=== PATIENT | male | born 1975 | race Caucasian/White ===

== ENCOUNTER 2018-06-23 12:45 | Emergency (ER) | payer OTHER ==
[~2018-06-23] VITALS: Ht 180.3 cm; Wt 74.8 kg
[2018-06-23 13:46] LABS: Basophils # (auto) 0.1 uL; Eosinophils # (auto) 0.1 uL; Eosinophils % (auto) 1.2 % (0.0-7.0); Hematocrit 52.9 % (41.0-53.0); Hemoglobin 17.6 g/dL (13.5-17.5); Lymphocytes # (auto) 2.8 uL; Lymphocytes % (auto) 24.3 % (10.0-50.0); Mean Corpuscular Hemoglobin 30.3 pg (28.0-32.0); Mean Corpuscular Hgb Conc. 33.2 g/dL (32.0-36.0); Mean Corpuscular Volume 91.3 fL (80.0-100.0); Monocytes # (auto) 0.6 uL; Monocytes % (auto) 5.4 % (0.0-12.0); Neutrophils # (auto) 7.7 uL; Neutrophils % (auto) 68.1 % (37.0-80.0); Nucleated Red Blood Cells % 0.1 %; Platelet Count (auto) 306 10^3/uL (140-450); Red Blood Cells 5.79 10^6/uL (4.5-5.90); Red Cell Distribution Width 14.6 % (11.8-14.3); White Blood Cell 11.3 10^3/uL (4.4-10.8)
[2018-06-23 14:05] LABS: INR 0.97 (0.9-1.15); Partial Thromboplastin Time 28.7 sec (23.78-33.04); Prothrombin Time 10.4 sec (9.27-12.13)
[2018-06-23 14:17] LABS: Potassium 4.1 mmol/L (3.5-5.1)
[2018-06-23 14:19] VITALS: BP 130/82
[2018-06-23 14:24] LABS: Albumin 4.3 g/dL (3.4-5.0); BUN/Creatinine Ratio 14.1; Bilirubin, Total 0.4 mg/dL (0.2-1.0); Calcium 9.1 mg/dL (8.5-10.1); Total Protein 8.1 g/dL (6.4-8.2)
== END 2018-06-23 14:36 | disposition home or self-care (01) ==
LOC: ER 12:50
DX: R79.1 Abnormal coagulation profile (principal); F17.210 Nicotine dependence, cigarettes, uncomplicated
CPT/HCPCS: 36415; 80053; 85025; 85610; 85730

== ENCOUNTER 2018-09-17 19:03 | Emergency (ER) | payer OTHER ==
[~2018-09-17] VITALS: Ht 175.3 cm; Wt 54.4 kg
[2018-09-17 20:24] VITALS: BP 107/80
== END 2018-09-17 21:01 | disposition home or self-care (01) ==
LOC: ER 19:03
DX: T83.028A Displacement of other urinary catheter, initial encounter (principal); F17.210 Nicotine dependence, cigarettes, uncomplicated

== ENCOUNTER 2018-09-19 22:12 | Emergency (ER) | payer OTHER ==
[~2018-09-19] VITALS: Ht 175.3 cm; Wt 56.7 kg
[2018-09-19 23:54] LABS: Urine Bacteria MANY /hpf (None Seen); Urine Blood 2+ /uL (Negative); Urine Hyaline Cast MOD /lpf (0 - 2); Urine Mucus FEW (None Seen); Urine WBC 2426 /hpf (0 - 3); Urine WBC Clumps PRESENT /hpf (None Seen)
[2018-09-20 05:12] VITALS: BP 123/78
== END 2018-09-20 05:14 | disposition home or self-care (01) ==
LOC: ER 22:12
DX: N39.0 Urinary tract infection, site not specified (principal); F17.210 Nicotine dependence, cigarettes, uncomplicated; Z46.6 Encounter for fitting and adjustment of urinary device; Z98.890 Other specified postprocedural states
CPT/HCPCS: 81001

== ENCOUNTER 2018-09-20 08:18 | Emergency (ER) | payer OTHER ==
[~2018-09-20] VITALS: Ht 175.3 cm; Wt 54.4 kg
[2018-09-20 09:41] VITALS: BP 113/48
[2018-09-20] MEDS ORDERED: SODIUM CHLORIDE 0.9% 1,000 ML IV ONE (10:31)
[2018-09-20 11:30] LABS: Basophils # (auto) 0.1 uL; Basophils % (auto) 0.8 % (0.0-2.0); Eosinophils # (auto) 0.2 uL; Eosinophils % (auto) 1.5 % (0.0-7.0); Hematocrit 43.4 % (41.0-53.0); Hemoglobin 14.5 g/dL (13.5-17.5); Lymphocytes # (auto) 2.8 uL; Lymphocytes % (auto) 24.8 % (10.0-50.0); Mean Corpuscular Hemoglobin 29.7 pg (28.0-32.0); Mean Corpuscular Hgb Conc. 33.3 g/dL (32.0-36.0); Mean Corpuscular Volume 89.2 fL (80.0-100.0); Monocytes # (auto) 0.9 uL; Neutrophils # (auto) 7.4 uL; Neutrophils % (auto) 64.9 % (37.0-80.0); Nucleated Red Blood Cells % 0.2 %; Platelet Count (auto) 283 10^3/uL (140-450); Red Blood Cells 4.87 10^6/uL (4.5-5.90); Red Cell Distribution Width 13.9 % (11.8-14.3); White Blood Cell 11.3 10^3/uL (4.4-10.8)
[2018-09-20 11:49] LABS: Albumin 3.6 g/dL (3.4-5.0); Calcium 8.4 mg/dL (8.5-10.1); Magnesium 2.4 mg/dL (1.6-2.6); Potassium 3.7 mmol/L (3.5-5.1)
[2018-09-20 11:51] LABS: Bilirubin, Total 0.8 mg/dL (0.2-1.0)
[2018-09-20] MEDS ORDERED: LIDOCAINE 2% (LOCAL ANESTH.) PF 5ml SDV ONE (11:58)
[2018-09-20] MEDS ORDERED: cefTRIAXone SOD 1,000 MG VL ONE (11:58)
[2018-09-20] MEDS ORDERED: cefTRIAXone W LIDOCAINE 1 GM IM IM ONE (12:00)
== END 2018-09-20 12:17 | disposition home or self-care (01) ==
LOC: ER 08:21
DX: J90 Pleural effusion, not elsewhere classified (principal); R09.89 Other specified symptoms and signs involving the circulatory and respiratory systems
CPT/HCPCS: 36415; 51702; 71046; 80053; 83735; 84443; 85025; 93005; 96372; 99284; J0696; J2001

== ENCOUNTER 2018-09-22 19:24 | Inpatient (IN) | payer OTHER ==
[~2018-09-22] VITALS: Ht 165.1 cm; Wt 49.0 kg
[2018-09-22] MEDS ORDERED: SODIUM CHLORIDE 0.9% 2,000 ML IV ONE (20:15)
[2018-09-22] MEDS ORDERED: SODIUM CHLORIDE 0.9% 1,800 ML IV ONE (20:15)
[2018-09-22] MEDS ORDERED: SODIUM BICARBONATE 8.4 % INJ 50ML VIAL IV ONE ×2 (21:00→22:16)
[2018-09-22] MEDS ORDERED: SODIUM BICARBONATE 50ML VIAL 50 ML in D5W 5% 1,000 ML IV ONE (21:00)
[2018-09-22 21:38] LABS: Basophils # (auto) 0.1 uL; Basophils % (auto) 0.4 % (0.0-2.0); Eosinophils # (auto) 0 uL; Hematocrit 44.8 % (41.0-53.0); Hemoglobin 14.5 g/dL (13.5-17.5); Lymphocytes % (auto) 4.1 % (10.0-50.0); Mean Corpuscular Hemoglobin 29.9 pg (28.0-32.0); Mean Corpuscular Hgb Conc. 32.3 g/dL (32.0-36.0); Mean Corpuscular Volume 92.7 fL (80.0-100.0); Monocytes # (auto) 1.6 uL; Monocytes % (auto) 6.7 % (0.0-12.0); Neutrophils # (auto) 21.9 uL; Neutrophils % (auto) 88.8 % (37.0-80.0); Nucleated Red Blood Cells % 0.1 %; Platelet Count (auto) 293 10^3/uL (140-450); Red Blood Cells 4.84 10^6/uL (4.5-5.90); Red Cell Distribution Width 14.3 % (11.8-14.3); White Blood Cell 24.7 10^3/uL (4.4-10.8)
[2018-09-22] MEDS ORDERED: NOREPINEPHRINE 8 MG/250ML KIT 250 ML IV STA (21:40)
[2018-09-22 21:50] LABS: Chloride 114 mmol/L (98-107); Potassium 4.1 mmol/L (3.5-5.1); Sodium 151 mmol/L (136-145)
[2018-09-22 21:54] LABS: Alanine Aminotransferase 99 U/L (16-61); Albumin 2.9 g/dL (3.4-5.0); Anion Gap 28 (5-15); Aspartate Aminotransferase 229 U/L (15-37); BUN/Creatinine Ratio 34.1; Blood Alcohol < 3.0 mg/dL (0-5); Blood Urea Nitrogen 62 mg/dL (7-18); Calcium 7.1 mg/dL (8.5-10.1); GFR African American 52 mL/min; GFR Non-African American 43 mL/min; Glucose 68 mg/dL (74-106); Magnesium 3.3 mg/dL (1.6-2.6)
[2018-09-22 21:56] LABS: Acetaminophen 3.5 ug/mL (10-30); Alkaline Phosphatase 69 U/L (45-117); Bilirubin, Total 0.4 mg/dL (0.2-1.0); Salicylate 7.4 mg/dL (2.8-20.0); Total Protein 6.2 g/dL (6.4-8.2)
[2018-09-22] MEDS ORDERED: DEXTROSE 50% SYRINGE 50 ML IV ONE (21:56)
[2018-09-22] MEDS ORDERED: DEXTROSE (50%) 50ML SYRG IV ONE (22:00)
[2018-09-22] MEDS ORDERED: PIPERACILLIN-TAZO 4.5GM 100 ML IV SCH (22:00)
[2018-09-22 22:09] LABS: Partial Thromboplastin Time 30.2 sec (23.78-33.04); Prothrombin Time 10.7 sec (9.27-12.13)
[2018-09-22 22:28] LABS: Alcohol, Urine < 3.0 mg/dL (0-5); Amphetamine Screen, Urine NEGATIVE (NEGATIVE); Barbiturate Scree,Urine NEGATIVE (NEGATIVE); Benzodiazephine Screen, Urine NEGATIVE (NEGATIVE); Cannabinoid Screen, Urine NEGATIVE (NEGATIVE); Cocaine Screen, Urine NEGATIVE (NEGATIVE); Opiate Scree,Urine NEGATIVE (NEGATIVE); Phencyclidine Screen, Urine NEGATIVE (NEGATIVE)
[2018-09-22 22:38] LABS: Urine Bacteria FEW /hpf (None Seen); Urine Blood 3+ /uL (Negative); Urine Mucus FEW (None Seen); Urine Specific Gravity 1.018 (1.001-1.035); Urine WBC 468 /hpf (0 - 3); Urine WBC Clumps PRESENT /hpf (None Seen)
[2018-09-22 22:44] LABS: Carbon Dioxide 9 mmol/L (21-32)
[2018-09-22] MEDS: VANCOMYCIN 1GM/250ML 250 ML IV SCH (22:52)
[2018-09-23] MEDS: PIPERACILLIN-TAZO 4.5GM 100 ML IV SCH ×3 (00:26→15:30)
[2018-09-23 00:43] LABS: Fibrinogen 329.7 mg/dL (177-375)
[2018-09-23] MEDS ORDERED: VANCOMYCIN PER PHARMACY 0 MG IV SCH (01:00)
[2018-09-23] MEDS ORDERED: ONDANSETRON HCL 4 MG/2 ML VIAL IV PRN (01:00)
[2018-09-23] MEDS ORDERED: ACETAMINOPHEN 325 MG TAB PO PRN (01:00)
[2018-09-23] MEDS ORDERED: NITROGLYCERIN 0.4 MG SL TAB SL PRN (01:00)
[2018-09-23] MEDS ORDERED: MORPHINE SULFATE 4 MG/ML SYR/VIAL IV PRN (01:00)
[2018-09-23] MEDS ORDERED: SODIUM BICARBONATE 8.4 % INJ 50ML VIAL IV ONE (01:21)
[2018-09-23] MEDS: SODIUM BICARBONATE 50ML VIAL 50 ML in D5W/SOD CHL 0.45% 1,000 ML IV SCH ×3 (01:27→22:57)
[2018-09-23 05:41] LABS: Basophils # (auto) 0 uL; Basophils % (auto) 0.1 % (0.0-2.0); Eosinophils # (auto) 0 uL; Hematocrit 43.5 % (41.0-53.0); Hemoglobin 14.7 g/dL (13.5-17.5); Lymphocytes # (auto) 1.1 uL; Lymphocytes % (auto) 5.6 % (10.0-50.0); Mean Corpuscular Hgb Conc. 33.8 g/dL (32.0-36.0); Mean Corpuscular Volume 88.9 fL (80.0-100.0); Monocytes # (auto) 1.6 uL; Monocytes % (auto) 8.1 % (0.0-12.0); Neutrophils # (auto) 16.9 uL; Neutrophils % (auto) 86.2 % (37.0-80.0); Platelet Count (auto) 301 10^3/uL (140-450); Red Blood Cells 4.89 10^6/uL (4.5-5.90); Red Cell Distribution Width 13.9 % (11.8-14.3); White Blood Cell 19.6 10^3/uL (4.4-10.8)
[2018-09-23] MEDS ORDERED: PIPERACILLIN-TAZOB 3.375GM 100 ML IV SCH (06:00)
[2018-09-23 06:02] LABS: BUN/Creatinine Ratio 34.2; Calcium 7.2 mg/dL (8.5-10.1); Potassium 3.5 mmol/L (3.5-5.1)
[2018-09-23] MEDS ORDERED: NOREPINEPHRINE 8 MG/250ML KIT 250 ML IV ONE ×2 (09:45→22:16)
[2018-09-23] MEDS: PANTOPRAZOLE 40 MG/10 ML VIAL IV SCH (10:30)
[2018-09-23] MEDS: VANCOMYCIN 1GM/250ML 250 ML IV SCH ×2 (10:30→23:49)
[2018-09-23] MEDS ORDERED: DEXTROSE (50%) 50ML SYRG IV PRN (14:45)
[2018-09-23] MEDS: ACCU-CHEK COMFORT CURVE STRIP VI SCH ×2 (17:41→23:30)
[2018-09-23] MEDS: InsuLIN REG 1unit/0.01ml Soln (100units/ml) SC SCH ×2 (17:42→23:52)
[2018-09-23] MEDS: Glucerna Carbsteady SHAKE Vanilla 8oz PO SCH (18:46)
[2018-09-23 22:00] LABS: Calcium 7.2 mg/dL (8.5-10.1); Potassium 3.3 mmol/L (3.5-5.1)
[2018-09-23] MEDS ORDERED: ETOMIDATE (2MG/ML) 20ML VIAL IV ONE (22:37)
[2018-09-23] MEDS ORDERED: SUCCINYLCHOLINE CHLORIDE 20 MG/ML 10ML VIAL IV ONE (22:37)
[2018-09-24] MEDS: PIPERACILLIN-TAZO 4.5GM 100 ML IV SCH ×4 (04:05→23:12)
[2018-09-24 05:02] LABS: Basophils # (auto) 0.1 uL; Basophils % (auto) 1.2 % (0.0-2.0); Eosinophils # (auto) 0 uL; Eosinophils % (auto) 0.4 % (0.0-7.0); Hematocrit 38.1 % (41.0-53.0); Hemoglobin 13.1 g/dL (13.5-17.5); Lymphocytes # (auto) 2.9 uL; Mean Corpuscular Hemoglobin 30.5 pg (28.0-32.0); Mean Corpuscular Hgb Conc. 34.3 g/dL (32.0-36.0); Mean Corpuscular Volume 88.9 fL (80.0-100.0); Monocytes # (auto) 0.9 uL; Monocytes % (auto) 8.4 % (0.0-12.0); Neutrophils # (auto) 6.7 uL; Platelet Count (auto) 234 10^3/uL (140-450); Red Blood Cells 4.29 10^6/uL (4.5-5.90); White Blood Cell 10.7 10^3/uL (4.4-10.8)
[2018-09-24 05:36] LABS: Albumin 2.3 g/dL (3.4-5.0); BUN/Creatinine Ratio 20.5; Bilirubin, Total 0.5 mg/dL (0.2-1.0); Calcium 6.9 mg/dL (8.5-10.1)
[2018-09-24 05:56] LABS: Potassium 2.7 mmol/L (3.5-5.1)
[2018-09-24] MEDS: InsuLIN REG 1unit/0.01ml Soln (100units/ml) SC SCH ×4 (07:00→22:15)
[2018-09-24] MEDS: ACCU-CHEK COMFORT CURVE STRIP VI SCH ×4 (07:24→22:15)
[2018-09-24] MEDS: NOREPINEPHRINE 8 MG/250ML KIT 250 ML IV SCH ×2 (08:00→20:11)
[2018-09-24] MEDS: Glucerna Carbsteady SHAKE Vanilla 8oz PO SCH ×3 (08:00→18:10)
[2018-09-24] MEDS ORDERED: NOREPINEPHRINE 8 MG/250ML KIT 250 ML IV ONE (08:19)
[2018-09-24] MEDS: SODIUM BICARBONATE 50ML VIAL 50 ML in D5W/SOD CHL 0.45% 1,000 ML IV SCH ×3 (08:30→19:00)
[2018-09-24] MEDS: VANCOMYCIN 1GM/250ML 250 ML IV SCH ×2 (10:27→22:11)
[2018-09-24] MEDS: PANTOPRAZOLE 40 MG/10 ML VIAL IV SCH (10:27)
[2018-09-25] MEDS: PIPERACILLIN-TAZO 4.5GM 100 ML IV SCH (06:36)
[2018-09-25] MEDS: ACCU-CHEK COMFORT CURVE STRIP VI SCH ×4 (06:43→21:58)
[2018-09-25] MEDS: InsuLIN REG 1unit/0.01ml Soln (100units/ml) SC SCH ×4 (06:43→21:58)
[2018-09-25 07:39] LABS: Basophils # (auto) 0.1 uL; Basophils % (auto) 1.1 % (0.0-2.0); Eosinophils # (auto) 0.1 uL; Eosinophils % (auto) 1.3 % (0.0-7.0); Hematocrit 37.2 % (41.0-53.0); Hemoglobin 12.4 g/dL (13.5-17.5); Lymphocytes # (auto) 2.2 uL; Lymphocytes % (auto) 33.1 % (10.0-50.0); Mean Corpuscular Hemoglobin 29.9 pg (28.0-32.0); Mean Corpuscular Hgb Conc. 33.3 g/dL (32.0-36.0); Monocytes # (auto) 0.5 uL; Monocytes % (auto) 6.9 % (0.0-12.0); Neutrophils # (auto) 3.7 uL; Neutrophils % (auto) 57.6 % (37.0-80.0); Platelet Count (auto) 164 10^3/uL (140-450); Red Blood Cells 4.13 10^6/uL (4.5-5.90); White Blood Cell 6.5 10^3/uL (4.4-10.8)
[2018-09-25 07:49] LABS: Albumin 2.3 g/dL (3.4-5.0); Calcium 7.2 mg/dL (8.5-10.1); Magnesium 2.3 mg/dL (1.6-2.6)
[2018-09-25 07:54] LABS: BUN/Creatinine Ratio 23.2; Bilirubin, Total 0.3 mg/dL (0.2-1.0); Total Protein 4.9 g/dL (6.4-8.2)
[2018-09-25 08:02] LABS: Potassium 2.8 mmol/L (3.5-5.1)
[2018-09-25] MEDS: SODIUM BICARBONATE 50ML VIAL 50 ML in D5W/SOD CHL 0.45% 1,000 ML IV SCH ×2 (08:06→08:27)
[2018-09-25] MEDS: Glucerna Carbsteady SHAKE Vanilla 8oz PO SCH ×3 (08:26→18:18)
[2018-09-25] MEDS: VANCOMYCIN 1GM/250ML 250 ML IV SCH (08:26)
[2018-09-25] MEDS ORDERED: POTASSIUM CHLORIDE 40 MEQ, LIDOCAINE 1% (LOCAL ANESTH.) 4 ML in SODIUM CHL 0.9% 100 ML IV ONE (10:15)
[2018-09-25] MEDS: PANTOPRAZOLE 40 MG/10 ML VIAL IV SCH (10:27)
[2018-09-25] MEDS: D5W/SOD CHL 0.45%/KCL 20MEQ 1,000 ML IV SCH ×2 (10:27→21:02)
[2018-09-25] MEDS ORDERED: cefTRIAXone 1GM/50ML D5W 50 ML IV ONE (11:30)
--- NOTE | 2018-09-25 13:53 | NUR ---
MS admit from ER JOVITA NEVILLE admitted to tele/MS after SBAR received. Patient oriented to LEANNA TOWNSEND, primary RN, unit, room, bed, and unit policies regarding patient care and visiting hours. Patient weighed by bedscale and encouraged to call if they need something. All questions and concerns addressed, patient verbalized understanding. Note: Patient refused to answer admission questions this time. Patient states "I want to sleep."
[2018-09-25] MEDS: VANCOMYCIN HCL 125MG/5ML ORAL SOL PO SCH ×5 (13:57→22:00)
--- NOTE | 2018-09-25 15:30 | NUR ---
Report Report received from Rito. Patient transferred from the same floor. Bed in low pos., locked, rails up x2, call light in reach. Sitter in the room. Denies any pain. Removed of of the IV SL from left arm.
--- NOTE | 2018-09-25 15:34 | NUR ---
Patient will be transferred to room 221B. Report given to NEFTALI Crawford.
--- NOTE | 2018-09-25 15:36 | NUR ---
Patient moved to 221B
--- NOTE | 2018-09-25 16:00 | NUR ---
Assessment Pt alert x 4. On room air, no brathing difficulty. Has Felix cath draining clear yellow, with strong smell. On tele 11 running in 80's. Skin very very dry and it has been that way most of his life according to pt. Two LFA IV's and one removed because it was clotted. Right forearm SL flushed well. IV infusing to LFA with D5W & 20 K @ 75ML/HR. Denies any pain. Pt is a poor historian with regard to medical history.
[2018-09-25 16:34] VITALS: BP 118/54
--- NOTE | 2018-09-25 19:16 | NUR ---
Shift Report Shift report given to NEFTALI Diana. Pt resting in bed, bed in low pos., locked, rails up x2, call light in reach. Sitter at bedside. Denies any pain.
[2018-09-25 20:00] VITALS: BP 90/55
[2018-09-25 21:38] VITALS: BP 90/55
--- NOTE | 2018-09-26 01:40 | NUR ---
PATIENT REQUESTING TO BE OFF FROM FLUID AT THIS TIME. HEP-LOCKED, WILL RESUME FLUID LATER.
[2018-09-26] MEDS: VANCOMYCIN HCL 125MG/5ML ORAL SOL PO SCH ×5 (03:17→21:26)
[2018-09-26] MEDS: InsuLIN REG 1unit/0.01ml Soln (100units/ml) SC SCH ×3 (05:22→17:00)
[2018-09-26] MEDS: ACCU-CHEK COMFORT CURVE STRIP VI SCH ×3 (05:23→17:00)
--- NOTE | 2018-09-26 05:26 | NUR ---
Pt still refusing iv fluid at this time, educated re: importance of the fluid, still refusing and requesting to put it back in an hour. Will attempt later.
[2018-09-26 05:36] VITALS: BP 113/79
--- NOTE | 2018-09-26 07:30 | NUR ---
Opening Shift Note Assumed care of patient, awake and alert x2 -3. No S/S of distress/SOB or pain. Instructed on POC and to call for assistance PRN, will continue to monitor for changes Q1hr and PRN. Bed in low pos., locked, rails up x 4, Call light within reach. All accuchecks are within normal readings since arrival to the room yesterday. Sitter in the room.
[2018-09-26] MEDS: Glucerna Carbsteady SHAKE Vanilla 8oz PO SCH ×3 (08:00→18:46)
[2018-09-26 08:44] VITALS: BP 93/57
[2018-09-26] MEDS: cefTRIAXone 1GM/50ML D5W 50 ML IV SCH (08:47)
[2018-09-26 10:17] LABS: Basophils # (auto) 0 uL; Basophils % (auto) 0.9 % (0.0-2.0); Eosinophils # (auto) 0.3 uL; Hematocrit 37.3 % (41.0-53.0); Hemoglobin 12.3 g/dL (13.5-17.5); Lymphocytes # (auto) 1.7 uL; Lymphocytes % (auto) 33.2 % (10.0-50.0); Mean Corpuscular Hemoglobin 29.8 pg (28.0-32.0); Mean Corpuscular Volume 90.5 fL (80.0-100.0); Monocytes # (auto) 0.4 uL; Monocytes % (auto) 6.8 % (0.0-12.0); Neutrophils # (auto) 2.8 uL; Neutrophils % (auto) 53.1 % (37.0-80.0); Nucleated Red Blood Cells % 0.2 %; Platelet Count (auto) 173 10^3/uL (140-450); Red Blood Cells 4.12 10^6/uL (4.5-5.90); White Blood Cell 5.2 10^3/uL (4.4-10.8)
[2018-09-26 10:24] LABS: Albumin 2.3 g/dL (3.4-5.0); BUN/Creatinine Ratio 23.5; Calcium 7.5 mg/dL (8.5-10.1); Potassium 3.6 mmol/L (3.5-5.1)
[2018-09-26] MEDS: PANTOPRAZOLE 40 MG/10 ML VIAL IV SCH (10:28)
[2018-09-26 10:39] LABS: Bilirubin, Total 0.5 mg/dL (0.2-1.0)
--- NOTE | 2018-09-26 10:54 | NUR ---
IV STATUS IV TO RIGHT FOREARM LOOSE AND LEAKING. REMOVED IT JUST NOW.
--- NOTE | 2018-09-26 12:12 | NUR ---
NUTRITION ASSESSMENT NOTES Please refer to link notes of nutrition screen form filed under the intervention section of the plan of care for further details. Est. Needs: 1700 kcal to 1950 kcal (25-30 kcal/kgBW), 56 gms to 78 gms pro (1.0-1.4 gms/kgBW d/t severe hypoalbuminemia). Will continue to monitor pertinent labs and reassess nutrient needs prn Thank you. Addendum: 09/26/18 at [address] Amended: Links added.
[2018-09-26 13:11] VITALS: BP 103/72
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
[2018-09-26 17:14] VITALS: BP 107/78
[2018-09-26] MEDS: D5W/SOD CHL 0.45%/KCL 20MEQ 1,000 ML IV SCH (18:44)
--- NOTE | 2018-09-26 19:45 | NUR ---
Opening Shift Note Assumed care of patient, awake and alert to self. Sitter is at the bedside for safety precautions. No S/S of distress/SOB or pain noted. Instructed on plan of care and to call for assistance as needed, reinforcement needed. Bed is locked in lowest position, side rails x 2 are up, and call light is within reach.
--- NOTE | 2018-09-26 20:00 | NUR ---
REFUSING IV FLUIDS Patient is refusing IV fluids at this time. Educated patient on the why he is on IV fluids, patient still continues to refuse IV fluids at this time. Will attempt to resume IV fluids at a later time.
[2018-09-26 22:08] VITALS: BP 105/60
--- NOTE | 2018-09-26 23:00 | NUR ---
CONTINUES TO REFUSE IV FLUIDS Patient continues to refuse IV fluids at this time. Patient educated on the need for IV fluids.
--- NOTE | 2018-09-27 00:13 | NUR ---
HOSPITALIST PAGED Hospitalist paged regarding sleeping medication. Awaiting call back.
--- NOTE | 2018-09-27 02:02 | NUR ---
REFUSING IV FLUIDS Patient continues to refuse IV fluids at this time. Educated patient on the need for IV fluids, patient states he is refusing IV fluids because they "make him sick."
--- NOTE | 2018-09-27 02:05 | NUR ---
HOSPITALIST PAGED 2ND SECOND TIME Hospitalist paged called regarding sleeping medication. Awaiting call back.
[2018-09-27] MEDS: D5W/SOD CHL 0.45%/KCL 20MEQ 1,000 ML IV SCH ×2 (02:15→15:35)
[2018-09-27 05:00] VITALS: BP 120/76
[2018-09-27] MEDS: VANCOMYCIN HCL 125MG/5ML ORAL SOL PO SCH ×4 (06:31→21:30)
--- NOTE | 2018-09-27 07:20 | NUR ---
Opening shift note Assumed care of patient. Pt resting in bed sleeping., bed in low pos., locked, rails up x2, call light in reach. Denies any pain. Eflix cath draining well, clear yellow urine. No distress noted.
[2018-09-27 07:26] LABS: Basophils # (auto) 0 uL; Basophils % (auto) 0.6 % (0.0-2.0); Eosinophils # (auto) 0.4 uL; Eosinophils % (auto) 6.7 % (0.0-7.0); Hematocrit 41.6 % (41.0-53.0); Hemoglobin 13.8 g/dL (13.5-17.5); Lymphocytes # (auto) 2.1 uL; Mean Corpuscular Hemoglobin 30.1 pg (28.0-32.0); Mean Corpuscular Hgb Conc. 33.2 g/dL (32.0-36.0); Mean Corpuscular Volume 90.7 fL (80.0-100.0); Monocytes # (auto) 0.5 uL; Monocytes % (auto) 8.7 % (0.0-12.0); Neutrophils # (auto) 3.1 uL; Nucleated Red Blood Cells % 0.1 %; Platelet Count (auto) 197 10^3/uL (140-450); Red Blood Cells 4.58 10^6/uL (4.5-5.90); Red Cell Distribution Width 13.7 % (11.8-14.3); White Blood Cell 6.2 10^3/uL (4.4-10.8)
--- NOTE | 2018-09-27 07:29 | NUR ---
CLOSING SHIFT NOTE Endorsed patient care to Yvette LINDSAY.
[2018-09-27 07:45] LABS: Calcium 8.1 mg/dL (8.5-10.1); Potassium 4.1 mmol/L (3.5-5.1)
[2018-09-27 08:47] VITALS: BP 105/54
[2018-09-27] MEDS: cefTRIAXone 1GM/50ML D5W 50 ML IV SCH (09:26)
[2018-09-27] MEDS: Glucerna Carbsteady SHAKE Vanilla 8oz PO SCH ×3 (09:26→18:19)
[2018-09-27] MEDS: PANTOPRAZOLE 40 MG/10 ML VIAL IV SCH (09:27)
--- NOTE | 2018-09-27 09:29 | NUR ---
MEDICATION Spoke to Ryan (from pharmacy) who will find out how I can get the 10:00 oral vancomycin. Waiting to hear
--- NOTE | 2018-09-27 12:00 | NUR ---
GI COMPLAINTS Patient is often refusing IV antibiotics, IVF, and now ever oral vancomycin. Got pt to accept the IVF and the morning ceftriaxone, but now refusing vancomycin oral. Says everything boths his stomach and that it hurts right now. Refuses tylenol since yesterday as he says it upsets his stomach.
[2018-09-27 13:00] VITALS: BP 112/61
--- NOTE | 2018-09-27 13:17 | NUR ---
SWALLOW EVALUATED. PATIENT ABLE TO TOLERATE MECHANICAL SOFT DIET TEXTURE WITH THIN LIQUIDS WITH NO OVERT SIGNS OR SYMPTOMS OF ASPIRATION. PATIENT HAS NOT TEETH. ABLE TO FOLLOW COMMANDS. NURSING NOTIFIED.
[2018-09-27] MEDS ORDERED: GASTROGRAFIN 30 ML SOL ONE (17:19)
[2018-09-27 17:47] VITALS: BP 113/70
[2018-09-27 18:34] LABS: Alanine Aminotransferase 75 U/L (16-61); Albumin 2.7 g/dL (3.4-5.0); Aspartate Aminotransferase 50 U/L (15-37); Bilirubin, Direct < 0.1 mg/dL (0-0.2)
[2018-09-27 18:37] LABS: Alkaline Phosphatase 55 U/L (45-117); Bilirubin, Total 0.2 mg/dL (0.2-1.0); Total Protein 6.1 g/dL (6.4-8.2)
--- NOTE | 2018-09-27 19:30 | NUR ---
SHIFT REPORT Shift report endorsed to night RN Windy. Pt resting in bed, bed in low pos., locked, rails up x2, call light in reach. No distress noted.
--- NOTE | 2018-09-27 19:45 | NUR ---
Opening Shift Note Assumed care of patient, awake and alert to self. Sitter is at bedside. No S/S of distress/SOB or pain noted. Instructed on plan of care and to call for assistance as needed. Bed is locked in lowest position, side rails x 2 are up, and call light is within reach. I
--- NOTE | 2018-09-27 20:30 | NUR ---
PATIENT REFUSING IV FLUIDS Patient refusing IV fluids at this time. Patient states it makes his stomach upset. Will attempt to resume fluids at a later time.
[2018-09-27 22:00] VITALS: BP 96/59
[2018-09-28 00:13] VITALS: BP 114/73
[2018-09-28] MEDS: D5W/SOD CHL 0.45%/KCL 20MEQ 1,000 ML IV SCH ×2 (04:55→18:15)
[2018-09-28 05:07] VITALS: BP 102/66
[2018-09-28] MEDS: VANCOMYCIN HCL 125MG/5ML ORAL SOL PO SCH ×2 (05:50→12:00)
--- NOTE | 2018-09-28 07:19 | NUR ---
CLOSING SHIFT NOTE Endorsed patient care to Jennifer LINDSAY.
[2018-09-28] MEDS: Glucerna Carbsteady SHAKE Vanilla 8oz PO SCH ×3 (08:00→18:00)
[2018-09-28 09:00] VITALS: BP 89/48
--- NOTE | 2018-09-28 09:30 | NUR ---
MEDICATION REFUSAL Patient refusing AM medications, educated him on indications for prescriptions. Patient verbalized understanding,will attempt again in one hour.
[2018-09-28] MEDS: PANTOPRAZOLE 40 MG/10 ML VIAL IV SCH (10:00)
[2018-09-28 10:08] LABS: Hepatitis B Surface Antibody Negative
[2018-09-28 10:38] LABS: Hepatitis A Total Antibody Negative
[2018-09-28] MEDS: cefTRIAXone 1GM/50ML D5W 50 ML IV SCH (11:27)
[2018-09-28 11:29] LABS: Hepatitis B Core Total AB Negative; Hepatitis B Surface Antigen Negative (Negative); Hepatitis C Antibody Negative (Negative)
[2018-09-28 13:00] VITALS: BP 78/54
[2018-09-28 14:01] LABS: Basophils # (auto) 0.1 uL; Eosinophils # (auto) 0.3 uL; Eosinophils % (auto) 4.8 % (0.0-7.0); Hematocrit 44.3 % (41.0-53.0); Hemoglobin 14.9 g/dL (13.5-17.5); Lymphocytes # (auto) 2.2 uL; Lymphocytes % (auto) 31.2 % (10.0-50.0); Mean Corpuscular Hemoglobin 30.2 pg (28.0-32.0); Mean Corpuscular Hgb Conc. 33.5 g/dL (32.0-36.0); Mean Corpuscular Volume 90.1 fL (80.0-100.0); Monocytes # (auto) 0.7 uL; Monocytes % (auto) 9.6 % (0.0-12.0); Neutrophils # (auto) 3.8 uL; Neutrophils % (auto) 53.4 % (37.0-80.0); Nucleated Red Blood Cells % 0.1 %; Platelet Count (auto) 240 10^3/uL (140-450); Red Blood Cells 4.92 10^6/uL (4.5-5.90); Red Cell Distribution Width 13.8 % (11.8-14.3); White Blood Cell 7.1 10^3/uL (4.4-10.8)
[2018-09-28 14:22] LABS: BUN/Creatinine Ratio 32.7; Calcium 8.2 mg/dL (8.5-10.1); Potassium 4.3 mmol/L (3.5-5.1)
[2018-09-28 22:00] VITALS: BP 106/69
--- NOTE | 2018-09-29 01:00 | NUR ---
IV insertion Pt removed IV on his own. New access obtained, via clean sterile technique by inserting 22 gauge catheter at left forearm after 1 attempt. IV secured properly. No trauma to site. Patient tolerated well.
[2018-09-29 04:00] VITALS: BP 115/67
[2018-09-29 07:07] LABS: Basophils # (auto) 0.1 uL; Basophils % (auto) 0.8 % (0.0-2.0); Eosinophils # (auto) 0.3 uL; Eosinophils % (auto) 3.6 % (0.0-7.0); Hematocrit 43.2 % (41.0-53.0); Hemoglobin 14.3 g/dL (13.5-17.5); Lymphocytes # (auto) 2.4 uL; Lymphocytes % (auto) 27.4 % (10.0-50.0); Mean Corpuscular Hemoglobin 29.8 pg (28.0-32.0); Mean Corpuscular Volume 90.2 fL (80.0-100.0); Monocytes # (auto) 0.9 uL; Monocytes % (auto) 9.9 % (0.0-12.0); Neutrophils # (auto) 5.1 uL; Neutrophils % (auto) 58.3 % (37.0-80.0); Nucleated Red Blood Cells % 0.1 %; Platelet Count (auto) 253 10^3/uL (140-450); Red Blood Cells 4.79 10^6/uL (4.5-5.90); Red Cell Distribution Width 13.6 % (11.8-14.3); White Blood Cell 8.7 10^3/uL (4.4-10.8)
[2018-09-29 07:12] LABS: BUN/Creatinine Ratio 47.3; Calcium 8.2 mg/dL (8.5-10.1); Potassium 4.2 mmol/L (3.5-5.1)
[2018-09-29] MEDS: D5W/SOD CHL 0.45%/KCL 20MEQ 1,000 ML IV SCH (07:37)
[2018-09-29] MEDS: cefTRIAXone 1GM/50ML D5W 50 ML IV SCH (08:48)
[2018-09-29] MEDS: PANTOPRAZOLE 40 MG/10 ML VIAL IV SCH (08:52)
[2018-09-29] MEDS: Glucerna Carbsteady SHAKE Vanilla 8oz PO SCH (08:52)
[2018-09-29 09:00] VITALS: BP 135/68
--- NOTE | 2018-09-29 12:27 | NUR ---
Called Brit from to follow up on fdc placement, status still pending.
[2018-09-29 13:00] VITALS: BP 138/90
--- NOTE | 2018-09-29 15:45 | NUR ---
assessment Per consult please assist with transportation to [facility] today. Patient informed me prior to admission he lived home with his niece. I informed patient per Kandy at the [facility] she will not accept patient due to being on parole. Patient informed me he will return home with family in [place]. Addendum: 09/29/18 at 1549 by Brit [place] Amended: Links added.
--- NOTE | 2018-09-29 16:03 | NUR ---
PATIENT VERBALIZED TO CHARLI MURGUIA AND PRIMARY RN THAT HE WISHES TO GO HOME TO HIS [facility] HOUSE IN [place].
--- NOTE | 2018-09-29 18:04 | NUR ---
Discharge instructions given as ordered. Encourage to follow up with PMD as instructed. All questions and concerns addressed. Patient verbalized understanding. Medication reconciliation form completed and copy given to patient. IV removed with catheter intact. Telemetry unit returned to ICU. Patient taken to vehicle via wheelchair with all personal belongings, accompanied by staff and family member. No distress noted at time of departure.
== END 2018-09-29 17:50 | disposition home or self-care (01) | DRG 720 ==
LOC: EDBD 19:24 → ER 19:31 → TELE 09-23 00:50 → TELE-EAST 09-25 14:07 → CENTRAL 09-25 15:57 → TELE-CENTR 09-25 16:10
PROVIDERS: ADMIT Nurse Practitioner; ATTEND Internal Medicine
DX: A41.9 Sepsis, unspecified organism (principal); N17.0 Acute kidney failure with tubular necrosis; G92 Toxic encephalopathy; E44.0 Moderate protein-calorie malnutrition; M62.82 Rhabdomyolysis; E88.09 Other disorders of plasma-protein metabolism, not elsewhere classified; E11.21 Type 2 diabetes mellitus with diabetic nephropathy; N39.0 Urinary tract infection, site not specified; E87.1 Hypo-osmolality and hyponatremia; E87.6 Hypokalemia; E87.0 Hyperosmolality and hypernatremia; N18.9 Chronic kidney disease, unspecified; E11.22 Type 2 diabetes mellitus with diabetic chronic kidney disease; I12.9 Hypertensive chronic kidney disease with stage 1 through stage 4 chronic kidney disease, or unspecified chronic kidney disease; E11.649 Type 2 diabetes mellitus with hypoglycemia without coma; E87.8 Other disorders of electrolyte and fluid balance, not elsewhere classified; F15.10 Other stimulant abuse, uncomplicated; K21.9 Gastro-esophageal reflux disease without esophagitis; R79.89 Other specified abnormal findings of blood chemistry; E86.0 Dehydration; Z68.1 Body mass index [BMI] 19.9 or less, adult
CPT/HCPCS: 36415; 36600; 70450; 71045; 80048; 80053; 80061; 80076; 80202; 80307; 80320; 80329; 81001; 82533; 82550; 82728; 82805; 82962; 83036; 83605; 83735; 84132; 84295; 84443; 84484; 85025; 85379; 85384; 85610; 85730; 86704; 86706; 86708; 86803; 87040; 87086; 87340; 87493; 92610; 93005; 96361; 96365; 96367; 96375; 97163; C9113; G0378; J0330; J0696; J1815; J2001; J2543

== ENCOUNTER → 2019-10-12 | Emergency (ER) | payer OTHER ==
[~2019-10-12] VITALS: Ht 175.3 cm; Wt 54.4 kg
[2019-10-12 17:21] LABS: Basophils # (auto) 0 10 ^3/uL (0-0.2); Basophils % (auto) 0.4 % (0.0-2.0); Eosinophils # (auto) 0.3 10 ^3/uL (0-0.8); Eosinophils % (auto) 3.8 % (0.0-7.0); Hematocrit 43.2 % (41.0-53.0); Hemoglobin 14.3 g/dL (13.5-17.5); Lymphocytes # (auto) 2.9 10 ^3/uL (0.4-5.4); Lymphocytes % (auto) 31.7 % (10.0-50.0); Mean Corpuscular Hemoglobin 29.4 pg (28.0-32.0); Mean Corpuscular Hgb Conc. 33.1 g/dL (32.0-36.0); Mean Corpuscular Volume 88.8 fL (80.0-100.0); Monocytes # (auto) 0.7 10 ^3/uL (0-1.3); Monocytes % (auto) 7.6 % (0.0-12.0); Neutrophils # (auto) 5.1 10 ^3/uL (1.6-8.6); Neutrophils % (auto) 56.5 % (37.0-80.0); Nucleated Red Blood Cells % 0.1 %; Platelet Count (auto) 335 10^3/uL (140-450); Red Blood Cells 4.87 10^6/uL (4.5-5.90); Red Cell Distribution Width 14.9 % (11.8-14.3)
[2019-10-12 17:40] LABS: Alanine Aminotransferase 25 U/L (16-61); Albumin 3.1 g/dL (3.4-5.0); Anion Gap 7 (5-15); Aspartate Aminotransferase 20 U/L (15-37); BUN/Creatinine Ratio 21.5; Blood Urea Nitrogen 17 mg/dL (7-18); Calcium 7.9 mg/dL (8.5-10.1); Carbon Dioxide 23 mmol/L (21-32); Chloride 112 mmol/L (98-107); GFR African American 136 mL/min; GFR Non-African American 112 mL/min; Glucose 116 mg/dL (74-106); Potassium 3.8 mmol/L (3.5-5.1); Sodium 142 mmol/L (136-145)
[2019-10-12 17:43] LABS: Alkaline Phosphatase 63 U/L (45-117); Bilirubin, Total 0.2 mg/dL (0.2-1.0); Total Protein 7.2 g/dL (6.4-8.2)
[2019-10-12 17:56] LABS: Acetaminophen < 2.0 ug/mL (10-30)
[2019-10-13 02:18] VITALS: BP 99/61
== END | disposition home or self-care (01) ==
LOC: ER 16:45
DX: F41.9 Anxiety disorder, unspecified (principal); F32.9 Major depressive disorder, single episode, unspecified
CPT/HCPCS: 36415; 80053; 80329; 85025